=== PATIENT | male | born 1990 | race Caucasian/White ===

== ENCOUNTER 2016-04-23 02:12 | Emergency (ER) | payer OTHER, SELFPAY ==
[2016-04-23] MEDS ORDERED: LORazepam 1 MG TAB As Ordered ONE (02:38)
[2016-04-23 02:50] LABS: BASO % 0.8 % (0.0-1.0); EOS # 0.4 K/mm3 (0.0-0.50); EOS % 5.6 % (0.0-3.0); LARGE UNSTAINED CELL # 0.1 K/mm3 (0.0-0.4); LARGE UNSTAINED CELL % 1.7 % (0.0-4.0); LYMPH # 1.9 K/mm3 (1.5-6.5); LYMPH % 29.5 % (24.0-44.0); MEAN CORPUSCULAR HEMOGLOBIN 30.9 pg (27.0-33.0); MEAN CORPUSCULAR HGB CONC 34.5 g/dl (32.0-36.5); MEAN CORPUSCULAR VOLUME 89.5 fl (80.0-96.0); MONO # 0.3 K/mm3 (0.0-0.8); MONO % 4.4 % (0.0-5.0); NEUTROPHILS # 3.8 K/mm3 (1.8-7.7); NEUTROPHILS % 57.9 % (36.0-66.0); PLATELET COUNT, AUTOMATED 206 k/mm3 (150-450); RED CELL DISTRIBUTION WIDTH 11.8 % (11.5-14.5); WHITE BLOOD COUNT 6.6 K/mm3 (4.0-10.0)
[2016-04-23 03:11] LABS: ANION GAP 8 MEQ/L (8-16); BLOOD UREA NITROGEN 9 MG/DL (7-18); CALCIUM LEVEL 8.4 MG/DL (8.5-10.1); CARBON DIOXIDE LEVEL 32 MEQ/L (21-32); CHLORIDE LEVEL 106 MEQ/L (98-107); CREATININE FOR GFR 1.09 MG/DL (0.70-1.30); GLOMERULAR FILTRATION RATE > 60.0 (>60); GLUCOSE, FASTING 109 MG/DL (70-105); SODIUM LEVEL 146 MEQ/L (136-145)
--- NOTE | 2016-04-23 03:40 | REPUSA ---
CLINICAL HISTORY: Testicular pain. TECHNIQUE: Realtime sonographic images were obtained in multiple projections. COMMENTS: Both testicles are of normal size and shape and are of homogeneous echo texture. The right testicle m easures 4.4 x 2.4 x 3.0 cm. The right epididymis measures 11 mm. The left testicle measures 4.8 2.6 x 27 cm. The left epididymis measures 8 mm. Color Doppler images reveal normal symmetrical flow to the testicles. There is no evidence for testic ular torsion. There is no evidence of varicocele or hydrocele. IMPRESSION: Unremarkable testicles. Thank you for your kind referral of this patient.
--- NOTE | 2016-04-23 05:44 | EDDOCDS ---
Physician Documentation [facility] Name: Mariano Manzano Age: 25 yrs Sex: Male : 1990 Arrival Date: 04/23/2016 Time: 02:12 Bed TR1 Private MD: Disposition: 04/23/16 03:45 Discharged to Home/Self Care. Impression: Contusion of scrotum and testes. - Condition is Stable. - Medication Reconciliation, Local Pharmacy Hours form. - Follow up: Jesus Martinez MD; When: Call to arrange an appointment; Reason: Recheck today's complaints. [facility]; When: Call to arrange an appointment; Reason: To establish care. - Problem is new. - Symptoms have improved. Historical: - Allergies: Keflex; - Home Meds: 1. Benadryl 25 mg Oral cap 1 cap once daily - PMHx: PTSD; Panic Disorder; Anxiety; - PSHx: Adenoidectomy; Tonsillectomy; - Social history: Smoking status: Patient states former smoker of tobacco. No barriers to communication noted, The patient speaks fluent [place], Speaks appropriately for age. - Family history: Not pertinent. - : The pt / caregiver states he / she is not on anticoagulants. Home medication list is obtained from the patient, family members. - Exposure Risk Screening:: None identified. Vital Signs: 04/23 02:21 BP 123 / 69; Pulse 111; Resp 18; Temp 95.9(O); Pulse Ox 100% on R/A; Weight 68.04 kg / nn1 150 lbs; Height 5 ft. 6 in. (167.64 cm); Pain 3/10; 04:12 BP 101 / 62; Pulse 70; Resp 18 S; Temp 98.1(O); Pulse Ox 97% on R/A; af2 02:21 Body Mass Index 24.21 (68.04 kg, 167.64 cm) nn1 MDM: 02:33 LORazepam 0.5 mg PO once ordered. mo1 02:34 UA Ordered. EDMS 02:34 CBC with Diff Ordered. EDMS 02:34 BMP Ordered. EDMS 02:34 GC & Chlamydia Amplification Ordered. EDMS 02:34 Urine Culture Ordered. EDMS 02:34 US Scrotal: right testicular pain Ordered. EDMS 02:43 Financial registration complete. hs2 02:54 [facility] Payment Agreement was scanned into [employer] and attached to record. gustavo Administered Medications: 02:41 Drug: LORazepam 0.5 mg [lorazepam 1 mg tablet (0.5 tabs)] Route: PO; ld5 Signatures: Dispatcher [employer] EDMS Jessica Stallings RN RN sls1 Thomas Mcnally, DO cs11 Jesus Reddy PA PA moBelgica ZambranoRN RN af2 Laura GarzaRN RN nn1 Tenisha Aragon gjb Hannah Hampton, Reg Reg hs2 Aarti Pride RN ld5 The chart was reviewed and I authenticate all verbal orders and agree with the evaluation and treatment provided.Attachments: 02:54 [facility] Payment Agreement gjb MTDD
--- NOTE | 2016-04-23 05:44 | EDDOCDS ---
Nurse's Notes [facility] Name: Mariano Manzano Age: 25 yrs Sex: Male : 1990 Arrival Date: 04/23/2016 Time: 02:12 Bed TR1 Private MD: Diagnosis: Contusion of scrotum and testes Presentation: 04/23 02:15 Presenting complaint: Patient states: bilateral testicular pain. Pain began yesterday. nn1 Has pulled groin in past, reports chronic testicular aches but pain is worse tonight. Adult Sepsis Screening: The patient does not have new or worsening altered mentation. Patient's respiratory rate is less than 22. Systolic blood pressure is greater than 100. Patient has a qSOFA score of 0- Negative Sepsis Screen. Suicide/Homicide risk assessment- the patient denies having any suicidal and/or homicidal ideations and does not present with any other emotional, behavioral or mental health complaints. Status: Patient is not a financial services auditor or dependent. Transition of care: patient was not received from another setting of care. 02:15 Acuity: DORINDA Level 3 nn1 02:15 Method Of Arrival: Walkin/Carried/Asstd nn1 Triage Assessment: 02:23 General: Appears in no apparent distress, Behavior is anxious, cooperative. Pain: nn1 Location: groin Pain currently is 3 out of 10 on a pain scale. Pt Declines HIV testing. The patient is triaged at the bedside. See Assessment in Nurses Notes section of ED record. Neurological: No deficits noted. Derm: Skin is pink, warm & dry. Historical: - Allergies: Keflex; - Home Meds: 1. Benadryl 25 mg Oral cap 1 cap once daily - PMHx: PTSD; Panic Disorder; Anxiety; - PSHx: Adenoidectomy; Tonsillectomy; - Social history: Smoking status: Patient states former smoker of tobacco. No barriers to communication noted, The patient speaks fluent Lithuanian, Speaks appropriately for age. - Family history: Not pertinent. - : The pt / caregiver states he / she is not on anticoagulants. Home medication list is obtained from the patient, family members. - Exposure Risk Screening:: None identified. Screenin:18 Screening information is obtained from the patient. Fall risk: No risks identified. af2 Assistance ADL's: requires no assistance with activities of daily living. Abuse/DV Screen: The patient / caregiver reports he/she is: not in a situation that causes fear, pain or injury. Nutritional screening: No deficits noted. Advance Directives: Currently, there is no health care proxy. home support is adequate. Assessment: 02:24 General: Patient reports heavy lifting and moving at work. Mother reports patient had nn1 pain in lower back/waist last week. . Pain: Location: groin Pain currently is 3 out of 10 on a pain scale. Neurological: Level of Consciousness is awake, alert, obeys commands. Respiratory: Airway is patent Respiratory effort is even, unlabored, Respiratory pattern is regular. GI: Abdomen is non- distended other Patient reports abdomen feels "full". : Reports burning with urination since 2 days ago Denies incontinence. Derm: Skin is pink, warm & dry. 02:29 General: Patient reports pain began following foreplay with significant other, denies nn1 ejaculation at that time. Reports burning with urination since. . GI: Bowel sounds present X 4 quads. Abd is soft and non tender X 4 quads. Musculoskeletal: No deficits noted. 03:18 General: Appears in no apparent distress, Behavior is cooperative, pt updated regarding af2 plan of care at this time, offers no further complaints. will continue to monitor. . Neurological: Level of Consciousness is awake, alert, obeys commands. Respiratory: Airway is patent Respiratory effort is even, unlabored, Respiratory pattern is regular. GI: Reports lower abdominal pain, nausea. : Reports burning with urination. Derm: Skin is pink, warm & dry. 04:09 General: Appears in no apparent distress, comfortable, Behavior is appropriate for age, af2 cooperative. Neurological: Level of Consciousness is awake, alert, obeys commands. Respiratory: Airway is patent Respiratory effort is even, unlabored. : Reports burning with urination. Derm: Skin is normal. Vital Signs: 02:21 BP 123 / 69; Pulse 111; Resp 18; Temp 95.9(O); Pulse Ox 100% on R/A; Weight 68.04 kg; nn1 Height 5 ft. 6 in. (167.64 cm); Pain 3/10; 04:12 BP 101 / 62; Pulse 70; Resp 18 S; Temp 98.1(O); Pulse Ox 97% on R/A; af2 02:21 Body Mass Index 24.21 (68.04 kg, 167.64 cm) nn1 ED Course: 02:14 Patient visited by Tenisha Aragon. gjb 02:14 Patient moved to Waiting gjb 02:18 Triage Initiated nn1 02:27 Patient moved to Triage 1 nn1 02:31 Jesus Reddy PA is PHCP. mo1 02:32 Thomas cMnally DO is Attending Physician. mo1 02:34 Patient visited by Jesus Reddy PA. mo1 02:43 Patient moved to TR1 jmb 02:43 GC & Chlamydia Amplification Sent. jmb 02:43 BMP Sent. jmb 02:43 CBC with Diff Sent. jmb 02:43 Urine Culture Sent. jmb 02:43 UA Sent. jmb 02:47 Patient moved to [facility] 02:54 [facility] Payment Agreement was scanned into [employer] and attached to record. gjb 02:56 PHCP role handed off by Jesus Reddy PA bs6 02:56 Tracy Estevez DO is PHCP. bs6 03:18 No IV's were initiated during this patient's visit. No procedures done that require af2 assistance. 03:19 The patient / caregiver is instructed regarding the plan of care and ED course. Patient af2 has correct armband on for positive identification. Placed in gown. 03:20 Patient visited by Belgica Lockhart RN. af2 03:44 Jesus Martinez MD is Referral Physician. cs11 03:53 Scrotal: right testicular pain Returned. EDMS 04:12 Patient visited by Belgica Lockhart RN. af2 04:57 [facility] is Referral Physician. cs11 05:14 Patient moved to TR1 sls1 Administered Medications: 02:41 Drug: LORazepam 0.5 mg [lorazepam 1 mg tablet (0.5 tabs)] Route: PO; ld5 Order Results: Lab Order: UA; SPEC'M 04/23/16 02:40 Test: APPEARANCE, URINE; Value: CLEAR; Range: CLEAR; Status: F Test: COLOR, URINE; Value: STRAW; Range: YELLOW; Status: F Test: PH,URINE; Value: 6.0; Range: 5.0-9.0; Units: UNITS; Status: F Test: SPECIFIC GRAVITY URINE AUTO; Value: 1.006; Range: 1.002-1.035; Status: F Test: PROTEIN, URINE AUTO; Value: NEGATIVE; Range: NEGATIVE; Units: mg/dL; Status: F Test: GLUCOSE, URINE (UA) AUTO; Value: NEGATIVE; Range: NEGATIVE; Units: mg/dL; Status: F Test: KETONE, URINE AUTO; Value: NEGATIVE; Range: NEGATIVE; Units: mg/dL; Status: F Test: UROBILINOGEN, URINE AUTO; Value: 0.2; Range: 0.0-2.0; Units: mg/dL; Status: F Test: BILIRUBIN, URINE AUTO; Value: NEGATIVE; Range: NEGATIVE; Status: F Test: NITRITE, URINE AUTO; Value: NEGATIVE; Range: NEGATIVE; Status: F Test: LEUKOCYTE ESTERASE, URINE AUTO; Value: NEGATIVE; Range: NEGATIVE; Status: F Test: BLOOD, URINE BLOOD; Value: NEGATIVE; Range: NEGATIVE; Status: F Test: WBC, URINE AUTO; Value: 1; Range: 0-3; Units: /HPF; Status: F Test: RBC, URINE AUTO; Value: 0; Range: 0-3; Units: /HPF; Status: F Test: BACTERIA, URINE AUTO; Value: NEGATIVE; Range: NEGATIVE; Status: F Test: SQUAMOUS EPITHELIAL CELL UR AU; Value: 0; Range: 0-6; Units: /HPF; Status: F Test: MUCUS, URINE; Value: SMALL; Range: NEGATIVE; Status: F Test: HYALINE CAST, URINE AUTO; Value: 0; Range: 0-1; Units: /LPF; Status: F Lab Order: CBC with Diff; SPEC'M 04/23/16 02:40 Test: WHITE BLOOD COUNT; Value: 6.6; Range: 4.0-10.0; Units: K/mm3; Status: F Test: RED BLOOD COUNT; Value: 5.12; Range: 4.30-6.10; Units: M/mm3; Status: F Test: HEMOGLOBIN; Value: 15.8; Range: 14.0-18.0; Units: g/dl; Status: F Test: HEMATOCRIT; Value: 45.8; Range: 42.0-52.0; Units: %; Status: F Test: MEAN CORPUSCULAR VOLUME; Value: 89.5; Range: 80.0-96.0; Units: fl; Status: F Test: MEAN CORPUSCULAR HEMOGLOBIN; Value: 30.9; Range: 27.0-33.0; Units: pg; Status: F Test: MEAN CORPUSCULAR HGB CONC; Value: 34.5; Range: 32.0-36.5; Units: g/dl; Status: F Test: RED CELL DISTRIBUTION WIDTH; Value: 11.8; Range: 11.5-14.5; Units: %; Status: F Test: PLATELET COUNT, AUTOMATED; Value: 206; Range: 150-450; Units: k/mm3; Status: F Test: NEUTROPHILS %; Value: 57.9; Range: 36.0-66.0; Units: %; Status: F Test: LYMPH %; Value: 29.5; Range: 24.0-44.0; Units: %; Status: F Test: MONO %; Value: 4.4; Range: 0.0-5.0; Units: %; Status: F Test: EOS %; Value: 5.6; Range: 0.0-3.0; Abnormal: Above high normal; Units: %; Status: F Test: BASO %; Value: 0.8; Range: 0.0-1.0; Units: %; Status: F Test: LARGE UNSTAINED CELL %; Value: 1.7; Range: 0.0-4.0; Units: %; Status: F Test: NEUTROPHILS #; Value: 3.8; Range: 1.8-7.7; Units: K/mm3; Status: F Test: LYMPH #; Value: 1.9; Range: 1.5-6.5; Units: K/mm3; Status: F Test: MONO #; Value: 0.3; Range: 0.0-0.8; Units: K/mm3; Status: F Test: EOS #; Value: 0.4; Range: 0.0-0.50; Units: K/mm3; Status: F Test: BASO #; Value: 0.0; Range: 0.0-0.2; Units: K/mm3; Status: F Test: LARGE UNSTAINED CELL #; Value: 0.1; Range: 0.0-0.4; Units: K/mm3; Status: F Lab Order: BMP; SPEC'M 04/23/16 02:40 Test: GLUCOSE, FASTING; Value: 109; Range: 70-105; Abnormal: Above high normal; Units: MG/DL; Status: F Test: BLOOD UREA NITROGEN; Value: 9; Range: 7-18; Units: MG/DL; Status: F Test: CREATININE FOR GFR; Value: 1.09; Range: 0.70-1.30; Units: MG/DL; Status: F Test: GLOMERULAR FILTRATION RATE; Value: > 60.0; Range: >60; Status: F Test: SODIUM LEVEL; Value: 146; Range: 136-145; Abnormal: Above high normal; Units: MEQ/L; Status: F Test: POTASSIUM SERUM; Value: 4.0; Range: 3.5-5.1; Units: MEQ/L; Status: F Test: CHLORIDE LEVEL; Value: 106; Range: 98-107; Units: MEQ/L; Status: F Test: CARBON DIOXIDE LEVEL; Value: 32; Range: 21-32; Units: MEQ/L; Status: F Test: ANION GAP; Value: 8; Range: 8-16; Units: MEQ/L; Status: F Test: CALCIUM LEVEL; Value: 8.4; Range: 8.5-10.1; Abnormal: Below low normal; Units: MG/DL; Status: F Test Note: ; Units are mL/min/1.73 m2 Chronic Kidney Disease Staging per NKF: Stage I & II GFR >=60 Normal to Mildly Decreased Stage III GFR 30-59 Moderately Decreased Stage IV GFR 15-29 Severely Decreased Stage V GFR <15 Very Little GFR Left ESRD GFR <15 on ACCOUNTS RECEIVABLE CLERK Lab Order: GC & Chlamydia Amplification; SPEC'M 04/23/16 02:40 Test: CHLAMYDIA DNA AMPLIFICATION; Value: NEGATIVE; Range: NEGATIVE; Status: F Test: GC DNA AMPLIFICATION; Value: NEGATIVE; Range: NEGATIVE; Status: F Radiology Order: US Scrotal: right testicular pain Test: US Scrotal: right testicular pain REASON FOR EXAMINATION: Adnexal Pain r/o Torsion; ; CLINICAL HISTORY: Testicular pain.; TECHNIQUE: Realtime sonographic images were obtained in multiple projections.; COMMENTS:; Both testicles are of normal size and shape and are of homogeneous echo texture. The right testicle m; easures 4.4 x 2.4 x 3.0 cm. The right epididymis measures 11 mm. The left testicle measures 4.8 2.6; x 27 cm. The left epididymis measures 8 mm.; Color Doppler images reveal normal symmetrical flow to the testicles. There is no evidence for testic; ular torsion. There is no evidence of varicocele or hydrocele.; IMPRESSION:; Unremarkable testicles.; Thank you for your kind referral of this patient.; ; Outcome: 03:45 Discharge ordered by Provider. cs11 04:11 Discharge Assessment: Patient awake, alert and oriented x 3. No cognitive and/or af2 functional deficits noted. Patient verbalized understanding of disposition instructions. patient administered narcotics - no. The following High Risk Discharge criteria are identified: None. Discharged to home ambulatory. Condition: stable. Discharge instructions given to patient, Instructed on discharge instructions, follow up and referral plans. Demonstrated understanding of instructions, Pt was receptive of discharge instructions/ teaching. Ultrasound Study completed. Property :Personal belongings accompany Pt. 05:44 Patient left the ED. sls1 Signatures: Dispatcher [employer] EDMS Aarti Pride,RN RN ld5 Jessica Stallings RN RN sls1 Thomas Mcnally DO DO cs11 Jesus Reddy PA PA mo1 Joey Uribe,RN RN Tracy De Leon, DO DO bs6 Belgica LockhartRN RN af2 Laura GarzaRN RN ginger1 Tenisha Aragon MTDD
--- NOTE | 2016-04-25 06:44 | EDDOCDS ---
Physician Documentation [facility] Name: Mariano Manzano Age: 25 yrs Sex: Male : 1990 Arrival Date: 04/23/2016 Time: 02:12 Bed TR1 Private MD: Disposition: 04/23/16 03:45 Discharged to Home/Self Care. Impression: Contusion of scrotum and testes. - Condition is Stable. - Medication Reconciliation, Local Pharmacy Hours form. - Follow up: Jesus Martinez MD; When: Call to arrange an appointment; Reason: Recheck today's complaints. [facility]; When: Call to arrange an appointment; Reason: To establish care. - Problem is new. - Symptoms have improved. Historical: - Allergies: Keflex; - Home Meds: 1. Benadryl 25 mg Oral cap 1 cap once daily - PMHx: PTSD; Panic Disorder; Anxiety; - PSHx: Adenoidectomy; Tonsillectomy; - Social history: Smoking status: Patient states former smoker of tobacco. No barriers to communication noted, The patient speaks fluent [place], Speaks appropriately for age. - Family history: Not pertinent. - : The pt / caregiver states he / she is not on anticoagulants. Home medication list is obtained from the patient, family members. - Exposure Risk Screening:: None identified. Vital Signs: 04/23 02:21 BP 123 / 69; Pulse 111; Resp 18; Temp 95.9(O); Pulse Ox 100% on R/A; Weight 68.04 kg / nn1 150 lbs; Height 5 ft. 6 in. (167.64 cm); Pain 3/10; 04:12 BP 101 / 62; Pulse 70; Resp 18 S; Temp 98.1(O); Pulse Ox 97% on R/A; af2 02:21 Body Mass Index 24.21 (68.04 kg, 167.64 cm) nn1 MDM: 02:33 LORazepam 0.5 mg PO once ordered. mo1 02:34 UA Ordered. EDMS 02:34 CBC with Diff Ordered. EDMS 02:34 BMP Ordered. EDMS 02:34 GC & Chlamydia Amplification Ordered. EDMS 02:34 Urine Culture Ordered. EDMS 02:34 US Scrotal: right testicular pain Ordered. EDMS 02:43 Financial registration complete. hs2 02:54 [facility] Payment Agreement was scanned into [employer] and attached to record. [facility] 09:06 T-Sheet-- Draft Copy was scanned into [employer] and attached to record. [facility] 04/24 11:09 Radiology Report was scanned into [employer] and attached to record. gb Administered Medications: 04/23 02:41 Drug: LORazepam 0.5 mg [lorazepam 1 mg tablet (0.5 tabs)] Route: PO; ld5 Signatures: Dispatcher [employer] EDMS Joanne White, Reg Reg gb Jessica Stallings RN RN sls1 Thomas Mcnally, DO cs11 Jesus Reddy PA PA mo1 [place], AmberRN RN af2 Laura GarzaRN RN nn1 Tenisha Aragon gjb Hannah Hampton, Reg Reg hs2 Erin Rod Laura RN ld5 The chart was reviewed and I authenticate all verbal orders and agree with the evaluation and treatment provided.Attachments: 02:54 [facility] Payment Agreement [facility] 09:06 T-Sheet-- Draft Copy [facility] Chart Complete MTDD
--- NOTE | 2016-04-25 06:44 | EDDOCDS ---
Nurse's Notes [facility] Name: Mariano Manzano Age: 25 yrs Sex: Male : 1990 Arrival Date: 04/23/2016 Time: 02:12 Bed TR1 Private MD: Diagnosis: Contusion of scrotum and testes Presentation: 04/23 02:15 Presenting complaint: Patient states: bilateral testicular pain. Pain began yesterday. nn1 Has pulled groin in past, reports chronic testicular aches but pain is worse tonight. Adult Sepsis Screening: The patient does not have new or worsening altered mentation. Patient's respiratory rate is less than 22. Systolic blood pressure is greater than 100. Patient has a qSOFA score of 0- Negative Sepsis Screen. Suicide/Homicide risk assessment- the patient denies having any suicidal and/or homicidal ideations and does not present with any other emotional, behavioral or mental health complaints. Status: Patient is not a manager technical services or dependent. Transition of care: patient was not received from another setting of care. 02:15 Acuity: DORINDA Level 3 nn1 02:15 Method Of Arrival: Walkin/Carried/Asstd nn1 Triage Assessment: 02:23 General: Appears in no apparent distress, Behavior is anxious, cooperative. Pain: nn1 Location: groin Pain currently is 3 out of 10 on a pain scale. Pt Declines HIV testing. The patient is triaged at the bedside. See Assessment in Nurses Notes section of ED record. Neurological: No deficits noted. Derm: Skin is pink, warm & dry. Historical: - Allergies: Keflex; - Home Meds: 1. Benadryl 25 mg Oral cap 1 cap once daily - PMHx: PTSD; Panic Disorder; Anxiety; - PSHx: Adenoidectomy; Tonsillectomy; - Social history: Smoking status: Patient states former smoker of tobacco. No barriers to communication noted, The patient speaks fluent Sudanese, Speaks appropriately for age. - Family history: Not pertinent. - : The pt / caregiver states he / she is not on anticoagulants. Home medication list is obtained from the patient, family members. - Exposure Risk Screening:: None identified. Screenin:18 Screening information is obtained from the patient. Fall risk: No risks identified. af2 Assistance ADL's: requires no assistance with activities of daily living. Abuse/DV Screen: The patient / caregiver reports he/she is: not in a situation that causes fear, pain or injury. Nutritional screening: No deficits noted. Advance Directives: Currently, there is no health care proxy. home support is adequate. Assessment: 02:24 General: Patient reports heavy lifting and moving at work. Mother reports patient had nn1 pain in lower back/waist last week. . Pain: Location: groin Pain currently is 3 out of 10 on a pain scale. Neurological: Level of Consciousness is awake, alert, obeys commands. Respiratory: Airway is patent Respiratory effort is even, unlabored, Respiratory pattern is regular. GI: Abdomen is non- distended other Patient reports abdomen feels "full". : Reports burning with urination since 2 days ago Denies incontinence. Derm: Skin is pink, warm & dry. 02:29 General: Patient reports pain began following foreplay with significant other, denies nn1 ejaculation at that time. Reports burning with urination since. . GI: Bowel sounds present X 4 quads. Abd is soft and non tender X 4 quads. Musculoskeletal: No deficits noted. 03:18 General: Appears in no apparent distress, Behavior is cooperative, pt updated regarding af2 plan of care at this time, offers no further complaints. will continue to monitor. . Neurological: Level of Consciousness is awake, alert, obeys commands. Respiratory: Airway is patent Respiratory effort is even, unlabored, Respiratory pattern is regular. GI: Reports lower abdominal pain, nausea. : Reports burning with urination. Derm: Skin is pink, warm & dry. 04:09 General: Appears in no apparent distress, comfortable, Behavior is appropriate for age, af2 cooperative. Neurological: Level of Consciousness is awake, alert, obeys commands. Respiratory: Airway is patent Respiratory effort is even, unlabored. : Reports burning with urination. Derm: Skin is normal. Vital Signs: 02:21 BP 123 / 69; Pulse 111; Resp 18; Temp 95.9(O); Pulse Ox 100% on R/A; Weight 68.04 kg; nn1 Height 5 ft. 6 in. (167.64 cm); Pain 3/10; 04:12 BP 101 / 62; Pulse 70; Resp 18 S; Temp 98.1(O); Pulse Ox 97% on R/A; af2 02:21 Body Mass Index 24.21 (68.04 kg, 167.64 cm) nn1 ED Course: 02:14 Patient visited by Tenisha Aragon. gjb 02:14 Patient moved to Waiting gjb 02:18 Triage Initiated nn1 02:27 Patient moved to Triage 1 nn1 02:31 Jesus Reddy PA is PHCP. mo1 02:32 Thomas Mcnally DO is Attending Physician. mo1 02:34 Patient visited by Jesus Reddy PA. mo1 02:43 Patient moved to TR1 jmb 02:43 GC & Chlamydia Amplification Sent. jmb 02:43 BMP Sent. jmb 02:43 CBC with Diff Sent. jmb 02:43 Urine Culture Sent. jmb 02:43 UA Sent. jmb 02:47 Patient moved to [facility] 02:54 [facility] into [employer] and attached to record. gjb 02:56 PHCP role handed off by Jesus eRddy PA bs6 02:56 Tracy Estevez DO is PHCP. bs6 03:18 No IV's were initiated during this patient's visit. No procedures done that require af2 assistance. 03:19 The patient / caregiver is instructed regarding the plan of care and ED course. Patient af2 has correct armband on for positive identification. Placed in gown. 03:20 Patient visited by Belgica Lockhart RN. af2 03:44 Jesus Martinez MD is Referral Physician. cs11 03:53 Scrotal: right testicular pain Returned. EDMS 04:12 Patient visited by Belgica Lockhart RN. af2 04:57 [facility] is Referral Physician. cs11 05:14 Patient moved to TR1 sls 09:06 T-Sheet-- Draft Copy was scanned into [employer] and attached to record. [facility] 04/24 11:09 Radiology Report was scanned into [employer] and attached to record. gb Administered Medications: 04/23 02:41 Drug: LORazepam 0.5 mg [lorazepam 1 mg tablet (0.5 tabs)] Route: PO; ld5 Order Results: Lab Order: UA; SPEC'M 04/23/16 02:40 Test: APPEARANCE, URINE; Value: CLEAR; Range: CLEAR; Status: F Test: COLOR, URINE; Value: STRAW; Range: YELLOW; Status: F Test: PH,URINE; Value: 6.0; Range: 5.0-9.0; Units: UNITS; Status: F Test: SPECIFIC GRAVITY URINE AUTO; Value: 1.006; Range: 1.002-1.035; Status: F Test: PROTEIN, URINE AUTO; Value: NEGATIVE; Range: NEGATIVE; Units: mg/dL; Status: F Test: GLUCOSE, URINE (UA) AUTO; Value: NEGATIVE; Range: NEGATIVE; Units: mg/dL; Status: F Test: KETONE, URINE AUTO; Value: NEGATIVE; Range: NEGATIVE; Units: mg/dL; Status: F Test: UROBILINOGEN, URINE AUTO; Value: 0.2; Range: 0.0-2.0; Units: mg/dL; Status: F Test: BILIRUBIN, URINE AUTO; Value: NEGATIVE; Range: NEGATIVE; Status: F Test: NITRITE, URINE AUTO; Value: NEGATIVE; Range: NEGATIVE; Status: F Test: LEUKOCYTE ESTERASE, URINE AUTO; Value: NEGATIVE; Range: NEGATIVE; Status: F Test: BLOOD, URINE BLOOD; Value: NEGATIVE; Range: NEGATIVE; Status: F Test: WBC, URINE AUTO; Value: 1; Range: 0-3; Units: /HPF; Status: F Test: RBC, URINE AUTO; Value: 0; Range: 0-3; Units: /HPF; Status: F Test: BACTERIA, URINE AUTO; Value: NEGATIVE; Range: NEGATIVE; Status: F Test: SQUAMOUS EPITHELIAL CELL UR AU; Value: 0; Range: 0-6; Units: /HPF; Status: F Test: MUCUS, URINE; Value: SMALL; Range: NEGATIVE; Status: F Test: HYALINE CAST, URINE AUTO; Value: 0; Range: 0-1; Units: /LPF; Status: F Lab Order: Urine Culture; SPEC'M 04/23/16 02:40 Test: URINE CULTURE; Value: URINE CULTURE RESULT NO GROWTH; Status: F Lab Order: CBC with Diff; SPEC'M 04/23/16 02:40 Test: WHITE BLOOD COUNT; Value: 6.6; Range: 4.0-10.0; Units: K/mm3; Status: F Test: RED BLOOD COUNT; Value: 5.12; Range: 4.30-6.10; Units: M/mm3; Status: F Test: HEMOGLOBIN; Value: 15.8; Range: 14.0-18.0; Units: g/dl; Status: F Test: HEMATOCRIT; Value: 45.8; Range: 42.0-52.0; Units: %; Status: F Test: MEAN CORPUSCULAR VOLUME; Value: 89.5; Range: 80.0-96.0; Units: fl; Status: F Test: MEAN CORPUSCULAR HEMOGLOBIN; Value: 30.9; Range: 27.0-33.0; Units: pg; Status: F Test: MEAN CORPUSCULAR HGB CONC; Value: 34.5; Range: 32.0-36.5; Units: g/dl; Status: F Test: RED CELL DISTRIBUTION WIDTH; Value: 11.8; Range: 11.5-14.5; Units: %; Status: F Test: PLATELET COUNT, AUTOMATED; Value: 206; Range: 150-450; Units: k/mm3; Status: F Test: NEUTROPHILS %; Value: 57.9; Range: 36.0-66.0; Units: %; Status: F Test: LYMPH %; Value: 29.5; Range: 24.0-44.0; Units: %; Status: F Test: MONO %; Value: 4.4; Range: 0.0-5.0; Units: %; Status: F Test: EOS %; Value: 5.6; Range: 0.0-3.0; Abnormal: Above high normal; Units: %; Status: F Test: BASO %; Value: 0.8; Range: 0.0-1.0; Units: %; Status: F Test: LARGE UNSTAINED CELL %; Value: 1.7; Range: 0.0-4.0; Units: %; Status: F Test: NEUTROPHILS #; Value: 3.8; Range: 1.8-7.7; Units: K/mm3; Status: F Test: LYMPH #; Value: 1.9; Range: 1.5-6.5; Units: K/mm3; Status: F Test: MONO #; Value: 0.3; Range: 0.0-0.8; Units: K/mm3; Status: F Test: EOS #; Value: 0.4; Range: 0.0-0.50; Units: K/mm3; Status: F Test: BASO #; Value: 0.0; Range: 0.0-0.2; Units: K/mm3; Status: F Test: LARGE UNSTAINED CELL #; Value: 0.1; Range: 0.0-0.4; Units: K/mm3; Status: F Lab Order: BMP; SPEC'M 04/23/16 02:40 Test: GLUCOSE, FASTING; Value: 109; Range: 70-105; Abnormal: Above high normal; Units: MG/DL; Status: F Test: BLOOD UREA NITROGEN; Value: 9; Range: 7-18; Units: MG/DL; Status: F Test: CREATININE FOR GFR; Value: 1.09; Range: 0.70-1.30; Units: MG/DL; Status: F Test: GLOMERULAR FILTRATION RATE; Value: > 60.0; Range: >60; Status: F Test: SODIUM LEVEL; Value: 146; Range: 136-145; Abnormal: Above high normal; Units: MEQ/L; Status: F Test: POTASSIUM SERUM; Value: 4.0; Range: 3.5-5.1; Units: MEQ/L; Status: F Test: CHLORIDE LEVEL; Value: 106; Range: 98-107; Units: MEQ/L; Status: F Test: CARBON DIOXIDE LEVEL; Value: 32; Range: 21-32; Units: MEQ/L; Status: F Test: ANION GAP; Value: 8; Range: 8-16; Units: MEQ/L; Status: F Test: CALCIUM LEVEL; Value: 8.4; Range: 8.5-10.1; Abnormal: Below low normal; Units: MG/DL; Status: F Test Note: ; Units are mL/min/1.73 m2 Chronic Kidney Disease Staging per NKF: Stage I & II GFR >=60 Normal to Mildly Decreased Stage III GFR 30-59 Moderately Decreased Stage IV GFR 15-29 Severely Decreased Stage V GFR <15 Very Little GFR Left ESRD GFR <15 on MEDICAL LABORATORY ASSISTANT Lab Order: GC & Chlamydia Amplification; SPEC'M 04/23/16 02:40 Test: CHLAMYDIA DNA AMPLIFICATION; Value: NEGATIVE; Range: NEGATIVE; Status: F Test: GC DNA AMPLIFICATION; Value: NEGATIVE; Range: NEGATIVE; Status: F Radiology Order: US Scrotal: right testicular pain Test: US Scrotal: right testicular pain REASON FOR EXAMINATION: Adnexal Pain r/o Torsion; ; CLINICAL HISTORY: Testicular pain.; TECHNIQUE: Realtime sonographic images were obtained in multiple projections.; COMMENTS:; Both testicles are of normal size and shape and are of homogeneous echo texture. The right testicle m; easures 4.4 x 2.4 x 3.0 cm. The right epididymis measures 11 mm. The left testicle measures 4.8 2.6; x 27 cm. The left epididymis measures 8 mm.; Color Doppler images reveal normal symmetrical flow to the testicles. There is no evidence for testic; ular torsion. There is no evidence of varicocele or hydrocele.; IMPRESSION:; Unremarkable testicles.; Thank you for your kind referral of this patient.; ; Outcome: 03:45 Discharge ordered by Provider. cs11 04:11 Discharge Assessment: Patient awake, alert and oriented x 3. No cognitive and/or af2 functional deficits noted. Patient verbalized understanding of disposition instructions. patient administered narcotics - no. The following High Risk Discharge criteria are identified: None. Discharged to home ambulatory. Condition: stable. Discharge instructions given to patient, Instructed on discharge instructions, follow up and referral plans. Demonstrated understanding of instructions, Pt was receptive of discharge instructions/ teaching. Ultrasound Study completed. Property :Personal belongings accompany Pt. 05:44 Patient left the ED. sls1 Signatures: Dispatcher [employer] EDMS Joanne White, Reg Reg gb Aarti Pride RN RN ld5 Jessica Stallings RN RN sls1 Thomas Mcnally, DO cs11 Jesus Reddy PA PA mo1 Joey Uribe RN RN dwayneb Tracy Estevez, DO DO bs6 Belgica Lockhart RN RN af2 Laura Garza RN RN nn1 Tenisha Aragon Sarah seh Chart Complete MTDD
--- NOTE | 2016-04-25 06:44 | EDDOCDS ---
Physician Documentation [facility] Name: Mariano Manzano Age: 25 yrs Sex: Male : 1990 Arrival Date: 04/23/2016 Time: 02:12 Bed TR1 Private MD: Disposition: 04/23/16 03:45 Discharged to Home/Self Care. Impression: Contusion of scrotum and testes. - Condition is Stable. - Medication Reconciliation, Local Pharmacy Hours form. - Follow up: Jesus Martinez MD; When: Call to arrange an appointment; Reason: Recheck today's complaints. [facility]; When: Call to arrange an appointment; Reason: To establish care. - Problem is new. - Symptoms have improved. Historical: - Allergies: Keflex; - Home Meds: 1. Benadryl 25 mg Oral cap 1 cap once daily - PMHx: PTSD; Panic Disorder; Anxiety; - PSHx: Adenoidectomy; Tonsillectomy; - Social history: Smoking status: Patient states former smoker of tobacco. No barriers to communication noted, The patient speaks fluent Kuwaiti, Speaks appropriately for age. - Family history: Not pertinent. - : The pt / caregiver states he / she is not on anticoagulants. Home medication list is obtained from the patient, family members. - Exposure Risk Screening:: None identified. Vital Signs: 04/23 02:21 BP 123 / 69; Pulse 111; Resp 18; Temp 95.9(O); Pulse Ox 100% on R/A; Weight 68.04 kg / nn1 150 lbs; Height 5 ft. 6 in. (167.64 cm); Pain 3/10; 04:12 BP 101 / 62; Pulse 70; Resp 18 S; Temp 98.1(O); Pulse Ox 97% on R/A; af2 02:21 Body Mass Index 24.21 (68.04 kg, 167.64 cm) nn1 MDM: 02:33 LORazepam 0.5 mg PO once ordered. mo1 02:34 UA Ordered. EDMS 02:34 CBC with Diff Ordered. EDMS 02:34 BMP Ordered. EDMS 02:34 GC & Chlamydia Amplification Ordered. EDMS 02:34 Urine Culture Ordered. EDMS 02:34 US Scrotal: right testicular pain Ordered. EDMS 02:43 Financial registration complete. hs2 02:54 [facility] Payment Agreement was scanned into [employer] and attached to record. [facility] 09:06 T-Sheet-- Draft Copy was scanned into [employer] and attached to record. [facility] 04/24 11:09 Radiology Report was scanned into [employer] and attached to record. gb Administered Medications: 04/23 02:41 Drug: LORazepam 0.5 mg [lorazepam 1 mg tablet (0.5 tabs)] Route: PO; ld5 Signatures: Dispatcher [employer] EDMS Joanne White, Reg Reg gb Jessica Stallings RN RN sls1 Thomas Mcnally, DO cs11 Jesus Reddy PA PA mo1 [place], AmberRN RN af2 Laura GarzaRN RN nn1 Tenisha Aragon gjb Hannah Hampton, Reg Reg hs2 Erin Rod Laura RN ld5 The chart was reviewed and I authenticate all verbal orders and agree with the evaluation and treatment provided.Attachments: 02:54 [facility] Payment Agreement [facility] 09:06 T-Sheet-- Draft Copy [facility] Chart Complete MTDD
== END 2016-04-23 05:44 | disposition home or self-care (01) ==
LOC: M ED 02:12
DX: S30.22XA Contusion of scrotum and testes, initial encounter (principal); X50.9XXA Other and unspecified overexertion or strenuous movements or postures, initial encounter; Y92.89 Other specified places as the place of occurrence of the external cause; Y93.89 Activity, other specified; Y99.9 Unspecified external cause status; F43.10 Post-traumatic stress disorder, unspecified; F41.0 Panic disorder [episodic paroxysmal anxiety]; Z87.891 Personal history of nicotine dependence; Z79.899 Other long term (current) drug therapy; Z88.1 Allergy status to other antibiotic agents

== ENCOUNTER → 2016-06-02 | Outpatient (CLI) | payer OTHER ==
--- NOTE | 2016-06-02 10:22 | REP ---
Ultrasonography of the right and left inguinal canals: The patient complains of right growing pain on and off. Ultrasonography of the inguinal canals is performed without and with Valsalva. No hernia is identified on the right or the left by ultrasound. Impression: No hernia identified by ultrasound in the right or left. Signed by Miguel Macedo MD 06/02/2016 10:14 A
== END ==
LOC: M RAD 09:36
PROVIDERS: ATTEND Nurse Practitioner Family
DX: R10.31 Right lower quadrant pain (principal)

== ENCOUNTER → 2016-06-09 | Outpatient (CLI) | payer OTHER ==
[2016-06-09 10:32] LABS: ALBUMIN 4.7 GM/DL (3.2-5.2); ALBUMIN/GLOBULIN RATIO 1.68 (1.00-1.93); ALKALINE PHOSPHATASE 48 U/L (45-117); ALT/SGPT 29 U/L (12-78); ANION GAP 7 MEQ/L (8-16); AST/SGOT 17 U/L (15-37); BILIRUBIN,TOTAL 0.6 MG/DL (0.2-1.0); BLOOD UREA NITROGEN 12 MG/DL (7-18); CARBON DIOXIDE LEVEL 29 MEQ/L (21-32); CHLORIDE LEVEL 106 MEQ/L (98-107); CREATININE FOR GFR 1.02 MG/DL (0.70-1.30); GLOMERULAR FILTRATION RATE > 60.0 (>60); GLUCOSE, FASTING 93 MG/DL (70-105); POTASSIUM SERUM 4.3 MEQ/L (3.5-5.1); SODIUM LEVEL 142 MEQ/L (136-145); TOTAL PROTEIN 7.5 GM/DL (6.4-8.2)
== END ==
LOC: M LAB 09:09
PROVIDERS: ATTEND Nurse Practitioner Family
DX: F41.8 Other specified anxiety disorders (principal)